=== PATIENT | male | born 1990 | race Two or more races ===

== ENCOUNTER 2022-09-12 12:32 | Emergency (ER) | payer MEDICAID, OTHER ==
[~2022-09-12] VITALS: Ht 190.5 cm; Wt 116.7 kg
[2022-09-12] MEDS ORDERED: LIDOCAINE 1% HCL (LOCAL ANESTH.) INJ 20ML MDV IJ ONE (14:30)
[2022-09-12 14:37] VITALS: BP 137/83
[2022-09-12] MEDS ORDERED: IBUP800T27 PO (14:52)
== END 2022-09-12 15:00 | disposition home or self-care (01) ==
LOC: ER 12:32
DX: S61.215A Laceration without foreign body of left ring finger without damage to nail, initial encounter (principal); W26.8XXA Contact with other sharp object(s), not elsewhere classified, initial encounter; Y93.89 Activity, other specified; Y92.89 Other specified places as the place of occurrence of the external cause; Y99.8 Other external cause status
CPT/HCPCS: 12002; 99282; J2001